=== PATIENT | male | born 1990 | race Two or more races ===

== ENCOUNTER 2022-03-31 18:17 | Emergency (ER) | payer OTHER ==
[~2022-03-31] VITALS: Ht 162.6 cm; Wt 53.8 kg
[2022-03-31] MEDS ORDERED: FAMOTIDINE 20 MG/2 ML VIAL IV STA (18:44)
[2022-03-31] MEDS ORDERED: SODIUM CHLORIDE 0.9% 1000ML 1,000 ML IV SCH (18:45)
[2022-03-31] MEDS ORDERED: IOPAMIDOL 370 MG/ML 100 ML INFUS..BTL INJ ONE (19:08)
[2022-03-31] MEDS ORDERED: PANTOPRAZOLE SO40 MG PO (20:16)
[2022-03-31] MEDS ORDERED: COLACE100 M1 PO (20:17)
[2022-03-31 20:25] VITALS: BP 124/72
== END 2022-03-31 20:25 | disposition home or self-care (01) ==
LOC: FSED 18:24
DX: R11.2 Nausea with vomiting, unspecified (principal); K29.70 Gastritis, unspecified, without bleeding; R10.30 Lower abdominal pain, unspecified; K21.9 Gastro-esophageal reflux disease without esophagitis; K64.4 Residual hemorrhoidal skin tags
CPT/HCPCS: 74177; 80048; 81003; 85025; 96374; 99284; J7030; Q9967